=== PATIENT | male | born 1965 | race Caucasian/White ===

== ENCOUNTER 2018-10-01 08:31 | Outpatient (CLI) | payer BC | END 2018-10-01 08:32 | disposition home or self-care (01) | LOC: CTENTCT 08:31 | PROVIDERS: ATTEND Specialist | DX: J32.9 Chronic sinusitis, unspecified (principal) | CPT/HCPCS: 70486 ==

== ENCOUNTER 2019-01-19 11:44 | Emergency (ER) | payer BC ==
[2019-01-19] MEDS ORDERED: Diazepam 5 MG TAB ONE (12:19)
[2019-01-19] MEDS ORDERED: Morphine 10 MG/ML VIAL ONE (12:20)
[2019-01-19] MEDS ORDERED: HYDROcodone/Acetaminophen 5/325 mg Tablet ONE (13:48)
[2019-01-19] MEDS ORDERED: Ketorolac Tromethamine 60 MG/2 ML VIAL ONE (16:19)
== END 2019-01-19 17:28 | disposition home or self-care (01) ==
LOC: ERS 11:44
DX: M54.5 Low back pain (principal); X50.1XXA Overexertion from prolonged static or awkward postures, initial encounter
CPT/HCPCS: 96372; J1885; J2270

== ENCOUNTER 2019-01-20 09:56 | Observation (INO) | payer BC ==
[2019-01-20] MEDS ORDERED: Ondansetron PF 4 MG/2 ML Vial ONE (10:31)
[2019-01-20] MEDS ORDERED: Morphine 4 MG/ML VIAL ONE ×2 (10:31→12:23)
[2019-01-20] MEDS ORDERED: Ketorolac Tromethamine 30 MG/ML VIAL ONE (10:31)
[2019-01-20 10:40] LABS: #Eosinphils 0.1 thou/uL (0.0-0.7); #Lymphocytes 1.5 thou/uL (1.20-3.40); #Monocytes 0.5 thou/uL (0.11-0.59); #Neutrophils 6.3 thou/uL (1.40-6.50); %Basophils 0.5 % (0.0-1.0); %Eosinophils 1.6 % (0.0-10.0); %Lymphocytes 17.5 % (21.0-51.0); %Monocytes 6.1 % (0.0-10.0); %Neutrophils 74.3 % (42.0-75.0); Hemoglobin 14.6 g/dL (14.0-18.0); Mean Corpuscular HGB CONC 33.8 g/dL (32.0-36.0); Mean Corpuscular Hemoglobin 31.1 pg (27.0-31.0); Mean Corpuscular Volume 92.1 fL (78.0-98.0); Mean Platelet Volume 7.6 fL (7.4-10.4); Platelet Count 151 thou/uL (130-400); RBC Distribution Width 12.6 % (11.5-14.5); White Blood Cell (WBC) Count 8.4 thou/uL (4.8-10.8)
[2019-01-20 11:03] LABS: ALT (SGPT) 14 U/L (8-55); AST (SGOT) 15 U/L (5-34); Albumin 3.6 g/dL (3.5-5.0); Alkaline Phosphatase 65 U/L (40-150); Anion Gap 11 mmol/L (10-20); BUN (Urea Nitrogen) 13 mg/dL (8.4-25.7); Bilirubin, Total 0.6 mg/dL (0.2-1.2); CK (CPK) 84 U/L (30-200); Calc. Creatinine Clearance 0 mL/min (70-130); Calcium 8.8 mg/dL (7.8-10.44); Carbon Dioxide 28 mmol/L (22-29); Chloride 104 mmol/L (98-107); Estimated GFR-MDRD 80; Glucose 98 mg/dL (70-105); Potassium 3.8 mmol/L (3.5-5.1); Protein, Total 5.6 g/dL (6.0-8.3); Sodium 139 mmol/L (136-145)
--- NOTE | 2019-01-20 12:13 | CT ---
CT abdomen and pelvis noncontrast CT lumbar spine noncontrast History back pain. Abdomen pain. Flank pain. FINDINGS: Each renal collecting system, ureter, and urinary bladder are decompressed without stone ap parent. Postoperative changes of the stomach. Scattered diverticula arise from the colon without adjacent formation. Vertebral body heights and alignment of the lumbar spine are maintained. Osteophytosis at all levels. Significant bilateral foraminal stenoses at the lowest 2 levels. Left posterolateral disc bulge and ossification at the L4-5 level. Lack of contrast limits evaluation for other abnormalities. Within the lateral margin of the right po sterior liver dome, a subtle, oval 1.1 cm low-density lesion is present. It cannot be confidently characterized as a cyst on this exam. Tiny low-density lesion within the left liver lobe also apparen t. Possible cyst. IMPRESSION: No CT evidence of urinary tract obstruction or calcification. Prominent degenerative changes of lumbar spine, including significant bilateral foraminal stenoses. N o acute osseous abnormalities are demonstrated. Small low-density lesions within the liver, as detailed above. Indeterminate origin. No prior exams a vailable for direct comparison. On a nonemergent basis, please consider dedicated CT liver, without and with IV contrast, for better sedation.
[2019-01-20] MEDS ORDERED: Diazepam 5 MG TAB ONE (12:55)
[2019-01-20] MEDS ORDERED: Zolpidem Tartrate 5 MG TAB PO PRN (13:50)
[2019-01-20] MEDS ORDERED: Ondansetron ODT 4 MG TAB PO PRN (13:50)
[2019-01-20] MEDS ORDERED: Acetaminophen 325 MG TAB PO PRN (13:50)
[2019-01-20] MEDS: HYDROcodone/Acetaminophen 7.5/325 mg Tablet PO PRN (15:47)
[2019-01-20 16:01] VITALS: BMI 39.6
--- NOTE | 2019-01-20 16:13 | HP ---
PRIMARY CARE PHYSICIAN: Xochilt Younger. HISTORY OF PRESENT ILLNESS: Referred to [facility] by [place] [facility] for severe back pain and unable to arise. Back pain started 6 days ago. Then, 2 days later, bending to pharmacy picking tech something, he twisted and he has had severe left-sided flank pain that radiates into the left thigh laterally with motion. He states there is a tingling with the pain. The pain is very sharp and intense. He states it is very difficult to get up and the last time he tried to get up, he had marked dizziness. He has not had no blood or pain on urination. PAST MEDICAL HISTORY: None. MEDICATIONS: None. ALLERGIES: HE GETS ANGIOEDEMA WITH AMOXICILLIN. PAST SURGICAL HISTORY: Gastric bypass 3 years ago, bilateral shoulder arthroscopic surgery, and right knee arthroscopic surgery. FAMILY HISTORY: Father of pancreatic cancer. Mother of lymphoma. He is . , next of kin, has power of employee benefits attorney. Full code status. Does not smoke or drink alcohol. REVIEW OF SYSTEMS: GENERAL: Dizziness, trying to arise today. Otherwise, no headaches, dizziness, fainting, fever, or chills. EYES: No double vision, blurred vision, or flashing lights. EAR, NOSE, AND THROAT: No ear pain or drainage. No nasal bleeding. No trouble swallowing. CARDIAC: No chest pain, orthopnea, or paroxysmal nocturnal dyspnea. RESPIRATIONS: No cough, wheezing, or asthma. GASTROINTESTINAL: No nausea, vomiting, diarrhea, or constipation. No abdominal pain. GENITOURINARY: No hematuria or dysuria. MUSCULOSKELETAL: He wears compression socks for swelling in his ankles. Otherwise, no pain or swelling in his ankle. NEUROLOGIC: No strokes, seizures, or focal weakness. PSYCHIATRIC: No anxiety or depression. SKIN: No bruising, bleeding, or rash. HEME/LYMPH: No tender or swollen lumps under his neck, in his groin or his armpits. PHYSICAL EXAMINATION: GENERAL: He is alert, cooperative, pleasant gentleman, in obvious discomfort. VITAL SIGNS: Blood pressure 151/88, pulse 53, respirations 20, temperature 97.9. HEENT: Examination of his head, eyes, ears, nose, and throat; pupils are equal, round, and reactive to light. Extraocular movements are intact. Sclerae are white. Tympanic membranes clear. Nose clear. Oral mucous membranes are wet. Dental hygiene is good. NECK: Supple without jugular venous distention, adenopathy, thyromegaly, or bruits. CHEST: Clear to auscultation and percussion. HEART: Had a regular rate and rhythm. First and second heart sounds are clear. There are no appreciated murmurs or gallops. ABDOMEN: Soft. Bowel sounds are normal. There is no hepatosplenomegaly. No mass. No rebound. No bruits. EXTREMITIES: Reveal no cyanosis, clubbing, or edema. PULSES: Carotid, radial, femoral, and dorsalis pedis pulses intact and symmetric. SKIN: Warm and dry without bruises or rash. HEME/LYMPH: No tender or swollen lymph nodes in axilla, inguinal, or cervical area. NEUROLOGIC: Cranial nerves 2 through 12 are intact. Moves all extremities. Toes downgoing. Lying supine, straight leg raising at 25 degrees, the patient had sudden pain. As I relaxed his leg, he had a sudden spasm in his leg. LABORATORY DATA: CBC within normal limits. Comprehensive metabolic profile normal. The only study presented radiographically is abdomen CT, noncontrast, was done looking for renal stones, there were none. Noted in the lumbar spine was significant bilateral foraminal stenosis in the lower lumbar spine, left posterolateral disk bulge and ossification to L4-5 level. ASSESSMENT: Severe back pain, left lumbar radiculopathy. PLAN: 1. Analgesia with Wallace and Toradol. 2. Urgent MRI of the LS spine and subsequent neurosurgical consult if indicated. Job ID: [id number]
[2019-01-20] MEDS ORDERED: Cyclobenzaprine 10 MG TAB PO SCH (16:15)
--- NOTE | 2019-01-20 16:48 | MRI ---
LUMBAR SPINE MRI WITHOUT IV COTNRAST: HISTORY: Lumbar radiculopathy. FINDINGS: Conus medullaris region is unremarkable. There are generalized disk desiccation changes and ligament and facet hypertrophic changes throughout the lumbar spine. No significant abnormal marrow signal. Small T2 hyperintense focus in the medial left kidney, evidence for a small cyst. T12-L1 disk: No canal or foraminal stenosis. L1-L2 disk: No canal or lateral recess or foraminal stenosis. L2-L3 disk: Mild disk bulging with slight thinning of the lateral recesses. L3-L4 disk: Generalized disk bulging with a somewhat more focally prominent left central protrusion with an associated annular fissure with mild central canal and mild to moderate lateral recess stenos is without significant foraminal stenosis. L4-L5 disk: Prominent annular fissure in the right paracentral region. Moderate central canal and m oderate to severe bilateral lateral recess stenosis worse on the left side with severe left and moder ate right foraminal stenosis. L5-S1: Generalized disk bulging with moderate to severe left foraminal and moderate right foraminal stenosis with mild bilateral recess stenosis worse on the left side. IMPRESSION: Multilevel variable severity canal, lateral recess, and foraminal stenosis, including L3-L4, L4-L5, a nd L5-S1 in particular. POS: OFF
[2019-01-20] MEDS: Ketorolac Tromethamine 30 MG/ML VIAL IVP PRN (18:17)
[2019-01-20] MEDS: Cyclobenzaprine 10 MG TAB PO SCH (20:53)
[2019-01-21] MEDS: HYDROcodone/Acetaminophen 7.5/325 mg Tablet PO PRN ×3 (00:32→10:02)
[2019-01-21] MEDS: Cyclobenzaprine 10 MG TAB PO SCH ×2 (08:09→14:20)
--- NOTE | 2019-01-21 09:17 | CON ---
DATE OF CONSULTATION: This is an imaging review note. I have not seen this patient in person, but reviewing the imaging. He has what appears to be significant foraminal stenosis to the left more so than to the right at L4 and L5 secondary to bone spurring from the superior articulating facet at L5 and S1. None of these are profound, perhaps moderate at most significant degree, particularly in the L4 foramen on the left. Otherwise, central canal is widely patent with only minimal lateral recess stenosis present at L3-L4 and L4-L5. I would recommend pain management consultation and outpatient followup with Neurosurgery. Job ID: [id number]
[2019-01-21] MEDS: Ketorolac Tromethamine 30 MG/ML VIAL IVP PRN (11:53)
--- NOTE | 2019-01-21 13:52 | PDOC.PN ---
- Subjective Encounter Start Date: 01/21/19 Encounter Start Time: 13:47 Mr. Rodríguez was seen today in follow-up.He says his pain is better controlled. - Objective Resuscitation Status - Order Detail: 01/20/19 13:46 Resuscitation Status Routine Resuscitation Status: FULL: Full Resuscitation MAR Reviewed: Yes Vital Signs & Weight: Vital Signs (12 hours) Temp Pulse Resp BP Pulse Ox 01/21/19 11:23 97.6 F 63 16 154/88 H 98 01/21/19 07:56 97.8 F 61 16 161/92 H 96 01/21/19 04:00 98.2 F 69 18 126/82 96 Weight Weight 309 lb I&O: 01/20/19 01/21/19 01/22/19 06:59 06:59 06:59 Intake Total 480 Balance 480 Result Diagrams: 01/20/19 10:32 01/20/19 10:32 Phys Exam - Physical Examination HEENT: PERRLA, sclera anicteric Respiratory: no wheezing, no rales, no rhonchi, clear to auscultation bilateral Cardiovascular: RRR, no significant murmur, no rub Gastrointestinal: soft, non-tender, no distention, positive bowel sounds Musculoskeletal: no edema, pulses present Dx/Plan (1) Lumbar radiculopathy, acute Code(s): M54.16 - RADICULOPATHY, LUMBAR REGION Status: Acute (2) Obesity, morbid Code(s): E66.01 - MORBID (SEVERE) OBESITY DUE TO EXCESS CALORIES Status: Acute - Plan * Lumbar Radiculopathy- improved * He has been evaluated by pain management, and he will be discharged home on a medrol dose pack .
[2019-01-21] MEDS ORDERED: methylPREDNISolone 4 mg Tablet PO SCH (14:30)
[2019-01-21 15:13] VITALS: BP 150/87; TEMP 97.2
--- NOTE | 2019-01-21 19:06 | CON ---
PAIN MANAGEMENT CONSULTATION DATE OF CONSULTATION: 01/21/2019 HISTORY OF PRESENT ILLNESS: Mr. Rodríguez is a 53-year-old gentleman complaining of low back pain radiating to the left buttock and left posterolateral thigh. Symptoms started approximately 1 week ago when he "felt twinges of pain" associated with reaching for an object over his head. Symptoms resolved. The patient states the following day was "normal", and he was able to exercise without any issues. The following day, the patient has experienced an exacerbation of low back pain radiating to the left buttock and left posterolateral thigh when he bent over to get laundry. The following day, Mr. Rodríguez sought care at [facility]. He states he was treated with a steroid injection, oral Flexeril and ibuprofen and was released. The following day, Mr. Rodríguez saw his chiropractor. He states he was treated with general stretching and range of motion along with TENS treatment. Mr. Rodríguez states his condition continued to worsen. The following day, he sought care at the ER. He was treated with medications and released. Yesterday morning, Mr. Rodríguez was unable to get out of bed due to severe pain. He called for an ambulance and was transported to the ER and subsequently admitted with intractable back pain. Mr. Rodríguez denies any weakness in the lower extremities. No changes in the bowel or bladder function. No saddle anesthesia. His pain increased with range of motion of the lumbar spine with standing and walking. Pain decreases with lying flat. Mr. Rodríguez states his pain has significantly improved since admission. He rates his pain 4 over a scale of 1 to 10 with a single dose of [place] 7.5/325 today. He also has received ketorolac 30 mg IV and Flexeril 10 mg p.o. Mr. Rodríguez states he has been able to tolerate transferring from a lying to sitting position, from a sitting to standing position, and walking around the room this morning. MRI of the lumbar spine showed multilevel disk bulges from L3-L4 through to L5-S1. The L3- L4 disk bulge produces mild central stenosis and knfb-ps-qksuyotv lateral recess stenosis. At L4-L5, he has disk bulging and an annular fissure. There is moderate central canal and uzmkwsdv-dx-ddfodm bilateral recess stenosis, worse on the left where it is severe, and moderate on the right. At L5-S1, there is generalized disk bulging with cpwzbqgd-vw-rtdtfu left foraminal and moderate right foraminal stenosis. There is mild bilateral recess stenosis, worse on the left (MRI findings are per Radiology report). Mr. Rodríguez denies any history of chronic back pain. He states in the past 5 years he has had a single episode of low back pain, that resolved with conservative and resident care technician. PAST MEDICAL HISTORY: The patient denies any chronic illness. MEDICATIONS: None chronically. ALLERGIES: THE PATIENT REPORTS ANGIOEDEMA WITH AMOXICILLIN. PAST SURGICAL HISTORY: 1. Gastric bypass 3 years ago. 2. Arthroscopic bilateral shoulder surgery 5 years ago. 3. Right knee arthroscopic surgery 5 years ago. FAMILY HISTORY: Father of pancreatic cancer. Mother with lymphoma. SOCIAL HISTORY: Mr. Rodríguez is . He denies a history of alcohol or drug abuse. His employment requires frequent travel. REVIEW OF SYSTEMS: Completely negative other than chief complaint. PHYSICAL EXAMINATION: GENERAL: The patient is sitting up in bed, appears comfortable. He is awake and alert. He is oriented. Speech is clear and appropriate. He is non-somnolent. Rates pain 4 over a scale of 1 to 10 presently. HEENT: EOMI. PERRL. Oral mucosa is moist/clear. NECK: Supple. No JVD. C-spine range of motion is intact and asymptomatic. CHEST: Clear to auscultation throughout. Respirations are even and unlabored. HEART: S1 and S2 are present. No murmurs, rubs, or gallops. ABDOMEN: Soft and nontender. Bowel sounds are positive in all 4 quadrants. BACK: He has no midline tenderness in the thoracic or lumbar spine. Mild reproducible tenderness with palpation over the lower lumbar paraspinal musculature. Lumbar flexion and extension are intact. There is mild discomfort with full flexion. Straight leg raises are negative bilaterally. NEUROLOGIC: Strength in the lower extremities is intact and symmetric in all muscle groups. Straight leg raises are negative bilaterally. Reflexes are intact/ symmetric in the lower extremities. ASSESSMENT: Multilevel lumbar disk bulging producing lateral recess and foraminal stenosis; left L5 radiculopathy. PLAN: Mr. Rodríguez states he has improved since hospital admission. Pain is manageable today with a single dose of [place] 7.5/325 along with ketorolac 30 mg IV and Flexeril 10 mg 1 p.o. He will start a Medrol Dosepak and take this as directed. Mr. Rodríguez was able to move around the room without significant pain during his exam today. Mr. Rodríguez will follow up with us on an outpatient basis next week to consider a lumbar epidural steroid injection if the oral steroid taper fails to provide adequate pain relief. Continue [place] and Flexeril as previously prescribed p.r.n. pain/spasm. Job ID: [id number] [facility]
--- NOTE | 2019-01-22 03:58 | DIS ---
DATE OF ADMISSION: 01/20/2019 DATE OF DISCHARGE: 01/21/2019 PRIMARY CARE PHYSICIAN: Xochilt Younger MD DISCHARGE DIAGNOSES: 1. Acute lumbar radiculopathy. 2. Morbid obesity. DISCHARGE MEDICATIONS: Medrol Dosepak as well as [place] 7.5/325 q.4 as needed, and Flexeril 10 mg t.i.d. as needed. PROCEDURES DONE DURING THE ADMISSION: The patient had a CT scan of the abdomen and pelvis, in which there were prominent degenerative changes of the lumbar spine including significant bilateral foraminal stenosis. There were small low density lesions in the liver of indeterminate origin. The patient also had an MRI of the lumbar spine showing multilevel, variable in severity canal stenosis including L3-L4, L4-L5 and L5 and S1. CODE STATUS: Full code. ALLERGIES: TO AMOXICILLIN. HOSPITAL COURSE: Mr. Rodríguez is a pleasant 53-year-old gentleman, who presented to the emergency room with severe low back pain. He had such severe pain that he was barely able to walk. He was placed in observation and an MRI was obtained. It did not show any significant worrisome findings such as an epidural abscess or diskitis or severe disk disease. It was felt that this could be managed conservatively. He was seen by a pain specialist, who recommended a Medrol Dosepak in addition to his current pain medications and to follow up in the outpatient setting if he were to need a spinal injection. Otherwise, the patient was ambulatory and his pain has much improved the following day and was subsequently discharged home. Job ID: [id number]
== END 2019-01-21 15:31 | disposition home or self-care (01) ==
LOC: ERS 09:56 → T4-A 14:51
PROVIDERS: ADMIT Internal Medicine; ATTEND Internal Medicine
DX: M54.16 Radiculopathy, lumbar region (principal); M48.061 Spinal stenosis, lumbar region without neurogenic claudication; R42 Dizziness and giddiness; E66.01 Morbid (severe) obesity due to excess calories; Z68.39 Body mass index [BMI] 39.0-39.9, adult; Z79.899 Other long term (current) drug therapy; Z88.0 Allergy status to penicillin
CPT/HCPCS: 36415; 72148; 74176; 80053; 82550; 85025; 96361; 96374; 96375; 96376; G0378; J1885; J2270; J2405

== ENCOUNTER 2019-03-11 09:46 | Outpatient (CLI) | payer BC ==
--- NOTE | 2019-03-11 11:22 | CT ---
CT ABDOMEN WITH AND WITHOUT IV CONTRAST: HISTORY: right liver lesion COMPARISON: 01/20/2019 FINDINGS: The 1 cm peripheral lesion in the right lobe of the liver is hypodense on the noncontrasted images an d demonstrates no significant/abnormal contrast enhancement. CT measurements are not consistent with a simple cyst. The tiny low-density lesion in the left lobe of the liver is too small to characterize. The lung bases are clear. There are postop changes of gastric bypass surgery. The spleen, pancreas, a drenal glands and kidneys are normal. No calcified gallstones are seen. The small bowel loops are not abnormally dilated. A normal-appearing appendix is seen. There is colonic diverticulosis. Degener ative changes are present in the spine. IMPRESSION: Nonenhancing liver lesions. In the absence of known malignancy, these are statistically likely to re present benign findings.
[2019-03-11] MEDS ORDERED: ISOVUE-370 76%-LOCM 1 ML ONE (11:45)
== END 2019-03-11 09:47 | disposition home or self-care (01) ==
LOC: BICCT 09:46
PROVIDERS: ATTEND Physician Assistant
DX: K76.9 Liver disease, unspecified (principal)
CPT/HCPCS: 74170; Q9966

== ENCOUNTER 2019-08-01 07:47 | Outpatient (CLI) | payer BC ==
[2019-08-01 17:18] LABS: #Eosinphils 0.1 thou/uL (0.0-0.7); #Lymphocytes 1.8 thou/uL (1.20-3.40); #Monocytes 0.5 thou/uL (0.11-0.59); %Basophils 0.6 % (0.0-1.0); %Eosinophils 2.2 % (0.0-10.0); %Lymphocytes 27.9 % (21.0-51.0); %Monocytes 7.3 % (0.0-10.0); %Neutrophils 62.1 % (42.0-75.0); Hemoglobin 14.8 g/dL (14.0-18.0); Mean Corpuscular HGB CONC 34.3 g/dL (32.0-36.0); Mean Corpuscular Hemoglobin 30.9 pg (27.0-31.0); Mean Corpuscular Volume 89.9 fL (78.0-98.0); Mean Platelet Volume 7.9 fL (7.4-10.4); Platelet Count 148 thou/uL (130-400); RBC Distribution Width 12.1 % (11.5-14.5); Red Blood Cell (RBC) Count 4.79 mill/uL (4.70-6.10); White Blood Cell (WBC) Count 6.4 thou/uL (4.8-10.8)
[2019-08-01 17:44] LABS: Anion Gap 12 mmol/L (10-20); BUN (Urea Nitrogen) 12 mg/dL (8.4-25.7); Calc. Creatinine Clearance 0 mL/min (70-130); Calcium 9.2 mg/dL (7.8-10.44); Carbon Dioxide 27 mmol/L (22-29); Chloride 106 mmol/L (98-107); Estimated GFR-MDRD 86; Glucose 96 mg/dL (70-105); Sodium 141 mmol/L (136-145)
== END 2019-08-01 07:48 | disposition home or self-care (01) ==
LOC: LABBT 07:47
PROVIDERS: ATTEND Orthopaedic Surgery
DX: Z01.812 Encounter for preprocedural laboratory examination (principal); M23.41 Loose body in knee, right knee
CPT/HCPCS: 80048; 85025

== ENCOUNTER 2019-08-05 05:43 | Day surgery (SDC) | payer BC ==
[2019-08-01 15:32] VITALS: BMI 37.8
[2019-08-05] MEDS ORDERED: PROPOFOL 20 ML ONE (06:15)
[2019-08-05] MEDS ORDERED: Clindamycin/D5W 600 mg/50 ml Premix Bag ONE (07:00)
[2019-08-05] MEDS ORDERED: Fentanyl 100 MCG/2 ML VIAL ONE (07:18)
[2019-08-05] MEDS ORDERED: Ondansetron PF 4 MG/2 ML Vial ONE ×2 (08:42→11:02)
[2019-08-05] MEDS ORDERED: PROPOFOL 200 MG/20 ML VIAL ONE (11:02)
[2019-08-05] MEDS ORDERED: Ketorolac Tromethamine 30 MG/ML VIAL ONE (11:02)
[2019-08-05] MEDS ORDERED: Lidocaine 1% PF 5 ML VIAL ONE (11:02)
[2019-08-05] MEDS ORDERED: Lidocaine 2% w/Epinephrine 1:200K 20 ML VIAL ONE (11:02)
[2019-08-05] MEDS ORDERED: ePHEDrine/0.9% NaCl/PF SYRINGE 50 mg/10 ml ONE (11:02)
[2019-08-05] MEDS ORDERED: Bupivacaine HCl 0.5%/Epinephrine 1:200,000/PF 30 ml Vial ONE (11:02)
--- NOTE | 2019-08-08 09:15 | OP ---
DATE OF PROCEDURE: 08/05/2019 PREOPERATIVE DIAGNOSES: Loose body and possible meniscus tear, right knee. 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 ANESTHESIA: General. ESTIMATED BLOOD LOSS: Minimal. SPECIMENS: None. DRAINS: None. COMPLICATIONS: None. DESCRIPTION OF PROCEDURE: The patient was taken to the operating room, where general anesthesia was induced. Right leg was prepped and draped in usual sterile fashion. The scope was placed in the lateral portal, probe was placed in the medial portal. I removed a large loose body from the medial compartment of his knee. This was done with some difficulty. I had to use some periosteal elevators to extract the flap-type connection. Once this was done, I removed four loose bodies from his knee from partial lateral meniscectomy with a shaver. The medial meniscus was not actually torn, but there were stable articular cartilage flap tears, which could be interpreted as a meniscus tear on the MRI, debrided using a 4-0 full-radius resector. The knee was then drained. The medial portal was closed with nylon and sterile dressings applied. Job ID: [id number]
== END 2019-08-05 10:46 | disposition home or self-care (01) ==
LOC: SDC 05:43
PROVIDERS: ATTEND Orthopaedic Surgery
PROC: 0SBC4ZZ Excision of Right Knee Joint, Percutaneous Endoscopic Approach (ICD-10-PCS; principal; 2019-08-05)
DX: S83.281A Other tear of lateral meniscus, current injury, right knee, initial encounter (principal); S83.31XA Tear of articular cartilage of right knee, current, initial encounter; M94.261 Chondromalacia, right knee; M17.31 Unilateral post-traumatic osteoarthritis, right knee; I10 Essential (primary) hypertension; G47.30 Sleep apnea, unspecified; J45.909 Unspecified asthma, uncomplicated; Z79.899 Other long term (current) drug therapy; Z88.0 Allergy status to penicillin; Z98.84 Bariatric surgery status; X58.XXXA Exposure to other specified factors, initial encounter
CPT/HCPCS: J0670; J1885; J2001; J2405; J2704; J3010; J3490

== ENCOUNTER 2019-12-09 20:09 | Emergency (ER) | payer BC ==
[2019-12-09] MEDS ORDERED: Diazepam 5 MG TAB ONE (20:35)
[2019-12-09] MEDS ORDERED: Dexamethasone 10 MG/ML VIAL ONE (20:35)
[2019-12-09] MEDS ORDERED: Fentanyl 100 MCG/2 ML VIAL ONE (20:35)
[2019-12-09] MEDS ORDERED: Morphine 4 MG/ML VIAL ONE (22:07)
[2019-12-09] MEDS ORDERED: Ketorolac Tromethamine 30 MG/ML VIAL ONE (22:33)
--- NOTE | 2019-12-09 23:22 | CT ---
Exam: Lumbar spine CT without contrast HISTORY: Lumbar spine pain COMPARISON: None Correlation: MRI lumbar spine 01/20/2019 FINDINGS: Visualized solid organs are grossly unremarkable, with the exception of the pancreas/peripa ncreatic region with there are multiple hypodensities present. There is a well-circumscribed hypodense mass posterior to the head of the pancreas, near the uncinate prothesis measuring 3.6 x 3.0 cm with attenuation coefficient of 46 Hounsfield units. This hypodense lesion is not appreciated on a CT of the abdomen and pelvis performed in 03/11/2019. Better interrogation with a abdomen CT with oral and IV contrast is recommended. There are enlarged left periaortic lymph nodes. Lymph node conglomeration measures 4.8 x 2.8 cm. Additional lymph nodes are noted. There are 5 lumbar type vertebra. Lumbar spine vertebral body height is maintained. There is no fract ure. Presacral fat is preserved. Visualized sacrum and bony pelvis are intact. There is no spondylolisthesis. No spondylolysis. Limited evaluation the contents of the central spinal canal and neural foramina due to technique. T12-L1: No high-grade central canal stenosis. No high-grade neural foraminal narrowing L1-L2: No high-grade central canal stenosis or high-grade neural foraminal narrowing L1-2-L3: Broad-based disc bulge. Mild central canal stenosis. Mild bilateral neural foraminal narrowi ng L3-L4: Broad-based disc bulge with calcification in posterior annulus. Mild central canal stenosis an d mild bilateral foraminal narrowing L4-L5: There is a broad-based disc bulge with associated endplate osteophytes. There is narrowing of both subarticular zones. There is mass effect and probable obscuration of bilateral traversing L5 nerve roots. Moderate right and moderate to severe left neural foraminal narrowing L5-S1: Vacuum disc phenomenon. Broad-based disc bulge abuts the thecal sac. There is encroachment upo n both subarticular zones, left greater than right. Mass effect upon bilateral traversing S1 nerve roots, left greater than right. Moderate right and severe left neural foraminal narrowing. IMPRESSION: 1. Degenerative changes of the lumbar spine as described above. 2. Extensive retroperitoneal lymphadenopathy, incompletely evaluated. Questionable mass near the head of the pancreas. Further interrogation with an abdomen pelvis CT utilizing oral and IV contrast is recommended.
== END 2019-12-10 00:45 | disposition home or self-care (01) ==
LOC: ERS 20:09
DX: M47.816 Spondylosis without myelopathy or radiculopathy, lumbar region (principal)
CPT/HCPCS: 72131; 96374; 96375; J1100; J1885; J2270; J3010

== ENCOUNTER 2019-12-15 07:48 | Emergency (ER) | payer BC ==
[2019-12-15] MEDS ORDERED: Morphine 4 MG/ML VIAL ONE (08:12)
[2019-12-15] MEDS ORDERED: Ketorolac Tromethamine 30 MG/ML VIAL ONE (08:13)
[2019-12-15] MEDS ORDERED: Morphine 2 MG/ML SYRINGE ONE (08:13)
[2019-12-15] MEDS ORDERED: traMADol HCl 50 MG TAB ONE (11:04)
[2019-12-15] MEDS ORDERED: Gabapentin 300 MG CAP PO SCH (11:15)
== END 2019-12-15 11:45 | disposition home or self-care (01) ==
LOC: ERS 07:48
DX: M54.5 Low back pain (principal); M25.572 Pain in left ankle and joints of left foot; Z79.899 Other long term (current) drug therapy; Z79.82 Long term (current) use of aspirin
CPT/HCPCS: 96372; 99283; J1885; J2270

== ENCOUNTER 2019-12-17 19:58 | Emergency (ER) | payer BC ==
[2019-12-17] MEDS ORDERED: Fentanyl 100 MCG/2 ML VIAL ONE ×2 (20:57→22:12)
[2019-12-17] MEDS ORDERED: Lorazepam 2 MG/ML VIAL ONE (20:57)
[2019-12-17] MEDS ORDERED: Ketorolac Tromethamine 30 MG/ML VIAL ONE (20:57)
[2019-12-17] MEDS ORDERED: Dexamethasone 4 mg/ml Vial ONE (20:57)
== END 2019-12-17 23:03 | disposition home or self-care (01) ==
LOC: ERS 19:58
DX: M54.6 Pain in thoracic spine (principal); G89.29 Other chronic pain; I10 Essential (primary) hypertension; Z79.82 Long term (current) use of aspirin; Z79.899 Other long term (current) drug therapy
CPT/HCPCS: 96374; 96375; 96376; J1100; J1885; J2060; J3010

== ENCOUNTER 2019-12-21 14:15 | Outpatient (CLI) | payer BC ==
[~2019-12-21 14:15] MED LIST: Magnevist 469MG/ML 20 ML VIAL ONE
--- NOTE | 2019-12-21 16:26 | MRI ---
MRI OF THE LUMBAR SPINE WITH AND WITHOUT CONTRAST: 12/21/19 INDICATIONS: Lumbar radiculopathy. Fall with severe back pain. Comparison made to recent CT lumbar spine 12/09/19. That exam revealed multilevel degenerative change. Also described retroperitoneal adenopathy which was new when compared to previous MRI lumbar spine f rom 01/20/19. Correlation is made to the MRI of 01/20/19. FINDINGS: the lumbar vertebrae maintain height and alignment. There is edema within the L4 vertebra which is mo re pronounced posteriorly. This also shows diffuse enhancement. There is also mild edema enhancement in the posterior superior portion of the L5 vertebra. The other lumbar vertebrae maintain normal sign al. There is no compression or loss of height. At L1-2, no significant disc bulge or protrusion. Facet hypertrophy without central canal or foramina l stenosis. At L2-3, mild diffuse disc bulge. Moderate facet hypertrophy. Mild central canal stenosis. At L3-4, mild disc bulge slightly more pronounced to the left. Probable small annular fissure. This f lattens the anterior thecal sac more pronounced anteriorly on the left and results in mild central ca nal stenosis. There is associated facet hypertrophy and epidural fat. At L4-5, slight posterior listhesis along with a diffuse disc bulge. Facet hypertrophy. Mild to moder ate central canal stenosis. Left foraminal stenosis due to disc bulge into the foramina and the facet hypertrophy. At L5-S1, broad based disc bulge has a similar appearance to the prior study of 2019. This flattens t he anterior thecal sac and is slightly more pronounced to the left. Mild central canal stenosis. Left foraminal stenosis The retroperitoneal periaortic adenopathy seen on CT is again noted. IMPRESSION: 1. There is abnormal edema and enhancement involving the L4 and L5 vertebrae as described above. This could represent injury given the history of recent fall. There is no loss of height at this janeen e. Other pathologic etiologies cannot be excluded considering the presence of the adenopathy. Follow -up plain films could be performed to assess development of height loss. 2. Disc bulge/protrusion at several levels, most prominent at L3-4, L4-5 and L5-S1 as described above. 3. Retroperitoneal adenopathy is again noted. POS: ROMÁN
--- NOTE | 2019-12-21 16:59 | CT ---
CT ABDOMEN WITH CONTRAST: 12/21/19 INDICATIONS: Lymphadenopathy noted on recent CT lumbar spine. COMPARISON: Comparison made to CT abdomen and pelvis 03/11/19. The exam was performed with IV contrast; however, there is suboptimal opacification. There is a small 22 gauge needle with small flow rate which results in poor venous phase enhancement. The portal vein s and hepatic veins are not adequately opacified. Oral contrast was given. FINDINGS: The lung bases are clear. Images of the liver again reveal a small cyst peripherally in the right lobe which was present previo usly and is stable measuring approximately 1.0 cm. However, there are other liver lesions which appea r new today. There is a faint low density focus in the upper right lobe measuring 2.1 cm AP dimension which is poorly seen and poorly evaluated due to the lack of adequate contrast enhancement. There is another low density lesion under the dome of the liver measuring 1.6 cm which appears new from prior exam. The spleen and pancreas are unremarkable. The stomach again shows postoperative change. There is mural thickening and luminal narrowing at the EG junction and cardia region of the stomach. This may be postoperative; however, endoscopy is recomm ended to assess the mucosa at this location. The visualized small bowel loops are normal caliber; how ever, the entire small bowel are not evaluated on this abdomen only exam. Aorta is normal caliber. Adrenal glands and kidneys unremarkable. There is an exophytic cyst from the superior left kidney salvatore suring 1.6 cm which was present previously and is stable. There is significant abdominal adenopathy seen today. There are enlarged lymph nodes seen in the port a hepatis and portacaval regions. Enlarged portacaval lymph node today measures up to 5 cm. These lym ph nodes are seen around the head of the pancreas and abutting the duodenal loop. There is adenopathy seen in the upper abdomen superior to the adrenal glands and adenopathy along the inferior margin of the pancreas. There is significant periaortic adenopathy. Confluent adenopathy to the left of the aorta is seen and there is prominent aortocaval adenopathy as well. When compared to the prior exam of 03/11/19, there was a portacaval node which was mildly prominent an d there was a periaortic node on the right which was upper normal at that time measuring in the 1.6 c m range. There has been significant progression of the adenopathy since that study. Osseous structures unremarkable. IMPRESSION: 1. Significant adenopathy. There is estefania hepatis and portacaval adenopathy with significant edie nopathy in the periaortic and paracaval region. This has progressed significantly since the prior exa m of 03/11/19. 2. Evidence of two new liver lesions. The liver is poorly evaluated due to poor IV enhancement. 3. Mucosal thickening and luminal narrowing at the EG junction and extending into the cardia of the stomach at the site of prior operative change. Consider endoscopy. 4. Small cystic lesion exophytic from the superior left kidney is stable. POS: AGW
== END 2019-12-21 14:16 | disposition home or self-care (01) ==
LOC: TBSIIMAG 14:15
PROVIDERS: ATTEND Neurological Surgery
DX: R59.1 Generalized enlarged lymph nodes (principal); K75.89 Other specified inflammatory liver diseases; K76.9 Liver disease, unspecified; K92.89 Other specified diseases of the digestive system; N28.89 Other specified disorders of kidney and ureter; M51.16 Intervertebral disc disorders with radiculopathy, lumbar region
CPT/HCPCS: 72158; 74160; 74170; A9579

== ENCOUNTER → 2020-01-03 | Day surgery (SDC) | payer BC ==
[2020-01-03 07:01] VITALS: BMI 41.7
[2020-01-03 08:41] LABS: #Basophils 0.1 thou/uL (0.0-0.2); #Eosinphils 0.1 thou/uL (0.0-0.7); #Monocytes 0.6 thou/uL (0.11-0.59); %Basophils 0.7 % (0.0-1.0); %Eosinophils 1.2 % (0.0-10.0); %Lymphocytes 22.6 % (21.0-51.0); %Monocytes 6.9 % (0.0-10.0); %Neutrophils 68.7 % (42.0-75.0); Hemoglobin 14.3 g/dL (14.0-18.0); Mean Corpuscular HGB CONC 32.6 g/dL (32.0-36.0); Mean Corpuscular Volume 92.2 fL (78.0-98.0); Platelet Count 191 thou/uL (130-400); RBC Distribution Width 12.6 % (11.5-14.5); Red Blood Cell (RBC) Count 4.77 mill/uL (4.70-6.10); White Blood Cell (WBC) Count 8.8 thou/uL (4.8-10.8)
[2020-01-03 08:48] LABS: INR-International Normal Ratio 0.9; PTT 28.7 SEC (22.9-36.1); Prothrombin Time 12.4 sec (12.0-14.7)
--- NOTE | 2020-01-03 11:49 | CT ---
CT-guided biopsy left retroperitoneal mass Conscious sedation: At least 40 minutes spent with the patient for conscious sedation. HISTORY: Retroperitoneal mass. FINDINGS: After explaining the procedure and answering all questions, limited CT imaging of the abdom en was performed with patient right lateral decubitus position. Sterile technique, buffered local anesthesia, CT guidance, conscious sedation, and a left posterior a pproach were used to carefully advance a 19-gauge trocar needle into the left retroperitoneum, approaching the para-aortic mass. Multiple 20-gauge core biopsy specimens were obtained and submitted to Dr. Morel from pathology, who confirmed specimen adequacy. Needle was removed. No evidence of complication. Patient tolerated the procedure well and was returned to the holding area in good condition for furth er monitoring. IMPRESSION : Technically successful CT-guided biopsy left retroperitoneal mass. Pathology is pending.
[2020-01-03 13:13] VITALS: BP 145/95; TEMP 98.4
== END ==
LOC: CT 08:28
PROVIDERS: ATTEND Specialist
PROC: BW2GZZZ Computerized Tomography (CT Scan) of Pelvic Region (ICD-10-PCS; principal; 2020-01-03)
PROC: 07BC3ZX Excision of Pelvis Lymphatic, Percutaneous Approach, Diagnostic (ICD-10-PCS; principal; 2020-01-03)
DX: R59.0 Localized enlarged lymph nodes (principal); I10 Essential (primary) hypertension; J45.909 Unspecified asthma, uncomplicated; G47.30 Sleep apnea, unspecified; Z79.899 Other long term (current) drug therapy; Z88.0 Allergy status to penicillin
CPT/HCPCS: 36415; 49180; 77012; 85025; 85610; 85730; 88184; 88305; 88333; 88334

== ENCOUNTER 2020-02-13 09:41 | Outpatient (CLI) | payer BC ==
--- NOTE | 2020-02-13 10:00 | RAD ---
LUMBAR SPINE SERIES 2 VIEWS: Date: 02/04/2020 HISTORY: Back pain. Fall 2 months ago. COMPARISON: 01/12/2020 exam. FINDINGS: The vertebral bodies maintain normal height. Some degenerative osteophytic change is seen. Some minim al disc narrowing at L3-4 and L4-5. More pronounced disc narrowing at the L5-S1 level. Overall change s appear fairly similar to the previous exam. IMPRESSION: Stable exam. POS: CLARISSA
== END 2020-02-13 09:42 | disposition home or self-care (01) ==
LOC: TBSIIMAG 09:41
PROVIDERS: ATTEND Neurological Surgery
DX: M54.16 Radiculopathy, lumbar region (principal)
CPT/HCPCS: 72100

== ENCOUNTER 2020-02-27 13:32 | Outpatient (CLI) | payer BC ==
[~2020-02-27 13:32] MED LIST changes: +Iopamidol-370 76% 500 ML 1 ML ONE; -Magnevist 469MG/ML 20 ML VIAL ONE
--- NOTE | 2020-02-27 15:45 | CT ---
CT THORAX WITH CONTRAST: DATE: 02/27/2020 HISTORY: 55-year-old male with neuroendocrine tumor. Staging CT. COMPARISON: no prior chest CT FINDINGS: At the lower portions of the images, there is a left para-aortic retroperitoneal mass that was recent ly biopsied under CT guidance. Again noted are the small lesions at the dome of the right lobe of the liver previously mentioned on the 12/21/[address] report. Suture line along narrowed stomach. No destructive osseous lesion identified. There are no suspicious pulmonary nodules. The lungs are clear. No pleural effusion or pneumothorax. No hilar lymphadenopathy. No thoracic aortic aneurysm . There is an approximately 1.6 x 1.4 x 1.8 cm enlarged prevascular space mediastinal lymph node just l ateral to the AP window and adjacent to the bottom of the aortic arch. Located a distance of approximately 2.5 cm anterior to that, there is another lymph node measuring ap proximately 1.4 x 1 x 1.1 cm. There are no other significantly enlarged mediastinal lymph nodes. No cardiomegaly or pericardial effusion. IMPRESSION: 1) 2 mildly enlarged mediastinal lymph nodes in the prevascular space adjacent to the aortic arch. Th iza are not amenable to percutaneous biopsy. Recommend PET scan. 2) no pulmonary metastases.
== END 2020-02-27 13:33 | disposition home or self-care (01) ==
LOC: BICCT 13:32
PROVIDERS: ATTEND Internal Medicine Hematology & Oncology
DX: D3A.8 Other benign neuroendocrine tumors (principal); C25.7 Malignant neoplasm of other parts of pancreas; R59.0 Localized enlarged lymph nodes
CPT/HCPCS: 71260; 83497; Q9967

== ENCOUNTER 2020-03-20 12:47 | Outpatient (CLI) | payer BC ==
--- NOTE | 2020-03-21 15:22 | NM ---
Radionucleotide Octreoscan with SPECT imaging HISTORY: Neuroendocrine tumor of the pancreas. FINDINGS: Physiologic uptake is apparent within the abdominal viscera and urinary system. No focal areas of abnormal uptake are evident at the abdomen/retroperitoneum with the mediastinum in region of adenopathy. IMPRESSION : Thoracoabdominal neoplasm does not accumulate Octreoscan.
== END 2020-03-20 12:48 | disposition home or self-care (01) ==
LOC: NM 12:47
PROVIDERS: ATTEND Internal Medicine Hematology & Oncology
DX: C25.7 Malignant neoplasm of other parts of pancreas (principal); D49.89 Neoplasm of unspecified behavior of other specified sites
CPT/HCPCS: 78802; 78803; A4641; A9572

== ENCOUNTER 2020-06-06 14:59 | Outpatient (CLI) | payer BC ==
--- NOTE | 2020-06-06 15:49 | RAD ---
EXAM: XR Lumbar Spine 2 Or 3 View PROVIDED CLINICAL HISTORY: Lumbar radiculopathy. Back pain since fall in November 2019. COMPARISON: 02/13/2020 FINDINGS: Again noted is loss of intervertebral disc space height at the L4-5 and L5-S1 levels. The vertebral b marsha heights are within normal limits. No fracture or subluxation is seen on the provided lateral images. Osseous detail is limited due to overlying soft tissue density. IMPRESSION: Osseous detail is limited due to overlying soft tissue density; however, there are degenerative justin es again seen in the lower lumbar spine without definite acute osseous abnormality seen on provided lateral images. There is no subluxation.
== END 2020-06-06 15:00 | disposition home or self-care (01) ==
LOC: TBSIIMAG 14:59
PROVIDERS: ATTEND Neurological Surgery
DX: M47.26 Other spondylosis with radiculopathy, lumbar region (principal)
CPT/HCPCS: 72100

== ENCOUNTER 2020-06-07 10:47 | Observation (INO) | payer BC ==
[2020-06-07] MEDS ORDERED: EPINEPHrine 1 mg/ml MDV (1ml Charge) ONE (12:18)
[2020-06-07] MEDS ORDERED: methylPREDNISolone Sod Succ/PF 125 MG/2 ML VIAL ONE (12:19)
[2020-06-07] MEDS ORDERED: diphenhydrAMINE 50 MG/ML VIAL ONE (12:19)
[2020-06-07] MEDS ORDERED: Famotidine/PF 20 mg/2ml Vial ONE (12:20)
[2020-06-07 14:00] LABS: #Lymphocytes 1.1 thou/uL (1.20-3.40); #Monocytes 0.3 thou/uL (0.11-0.59); #Neutrophils 2.8 thou/uL (1.40-6.50); %Basophils 0.9 % (0.0-1.0); %Eosinophils 0.9 % (0.0-10.0); %Lymphocytes 24.7 % (21.0-51.0); %Monocytes 7.3 % (0.0-10.0); %Neutrophils 66.3 % (42.0-75.0); Hemoglobin 14.5 g/dL (14.0-18.0); Mean Corpuscular HGB CONC 33.8 g/dL (32.0-36.0); Mean Corpuscular Hemoglobin 30.3 pg (27.0-31.0); Mean Corpuscular Volume 89.6 fL (78.0-98.0); Mean Platelet Volume 7.7 fL (7.4-10.4); Platelet Count 189 thou/uL (130-400); RBC Distribution Width 15.7 % (11.5-14.5); Red Blood Cell (RBC) Count 4.79 mill/uL (4.70-6.10); White Blood Cell (WBC) Count 4.2 thou/uL (4.8-10.8)
[2020-06-07] MEDS ORDERED: Ondansetron PF 4 MG/2 ML Vial IVP PRN (14:00)
[2020-06-07] MEDS ORDERED: Acetaminophen 325 MG TAB PO PRN ×2 (14:00→16:33)
[2020-06-07] MEDS ORDERED: Ondansetron ODT 4 MG TAB SL PRN (14:00)
[2020-06-07] MEDS ORDERED: Tranexamic Acid 1,000 MG/10 ML VIAL ONE (14:06)
[2020-06-07 14:07] LABS: INR-International Normal Ratio 0.9; PTT 32.9 sec (22.9-36.1); Prothrombin Time 12.4 sec (12.0-14.7)
[2020-06-07 14:31] LABS: Anion Gap 13 mmol/L (10-20); BUN (Urea Nitrogen) 9 mg/dL (8.4-25.7); Carbon Dioxide 28 mmol/L (22-29); Chloride 104 mmol/L (98-107); Potassium 4.6 mmol/L (3.5-5.1); Sodium 140 mmol/L (136-145)
[2020-06-07 14:32] LABS: ALT (SGPT) 15 U/L (8-55); AST (SGOT) 22 U/L (5-34); Albumin 4.1 g/dL (3.5-5.0); Alkaline Phosphatase 131 U/L (40-110); Bilirubin, Total 0.4 mg/dL (0.2-1.2); Calc. Creatinine Clearance 0 mL/min (70-130); Calcium 9.2 mg/dL (7.8-10.44); Estimated GFR-MDRD 70; Globulin 3.4 g/dL (2.4-3.5); Glucose 97 mg/dL (70-105); Protein, Total 7.5 g/dL (6.0-8.3)
[2020-06-07] MEDS ORDERED: Sodium Chloride 0.65% Nasal 44 ML BOT EA NARE PRN (16:33)
[2020-06-07] MEDS ORDERED: Senokot S 8.6-50 MG TAB PO PRN (16:33)
[2020-06-07] MEDS ORDERED: Labetalol HCl 100 MG/20 ML VIAL SLOW IVP PRN (16:33)
[2020-06-07] MEDS ORDERED: Zolpidem Tartrate 5 MG TAB PO PRN (16:33)
[2020-06-07] MEDS ORDERED: Guaifenesin DM 100-10/5 ML UDCUP PO PRN (16:33)
[2020-06-07] MEDS ORDERED: Bisacodyl 10 MG SUPP PR PRN (16:33)
[2020-06-07] MEDS ORDERED: Calcium Carbonate 500 MG ChewTAB PO PRN (16:33)
[2020-06-07] MEDS ORDERED: Cepastat Lozenges 1 LOZ PO PRN (16:33)
[2020-06-07] MEDS ORDERED: Loperamide HCl 2 MG CAP PO PRN (16:33)
[2020-06-07] MEDS ORDERED: hydrALAZINE 20 MG/ML VIAL SLOW IVP PRN (16:33)
[2020-06-07] MEDS ORDERED: Ondansetron ODT 4 MG TAB PO PRN (16:33)
[2020-06-07 18:36] VITALS: BMI 43.9
--- NOTE | 2020-06-07 19:59 | HP ---
PRIMARY CARE PHYSICIAN: [facility]. REASON FOR ADMISSION: Angioedema. HISTORY OF PRESENT ILLNESS: A 55-year-old male who has a history of hypertension and he is taking lisinopril for a long period of time. He was recently started on new blood pressure medication, but he is not able to tell me the name of medication. The patient also reports that he had back abscess, which required incision and debridement recently, and subsequently, the patient was given Bactrim DS and clindamycin. The patient was taking this antibiotic for about one week. The patient today noticed swelling of tongue and swelling of lip and he was having difficulty speaking because of that. The patient was given treatment for angioedema, but he did not improve significantly and that is why we decided to keep this patient in the hospital for observation. REVIEW OF SYSTEMS: All review of systems reviewed and negative except as mentioned in HPI. PAST MEDICAL HISTORY: Hypertension, morbid obesity, neuroendocrine tumor. PAST SURGICAL HISTORY: Gastric sleeve surgery, right knee surgery, right shoulder surgery. PAST PSYCHIATRIC HISTORY: Reviewed and negative. SOCIAL HISTORY: No smoking. No alcohol. No illicit drug abuse. ALLERGIES: AMOXICILLIN AND GABAPENTIN. CURRENT HOME MEDICATIONS: 1. Lisinopril 20 mg daily. 2. Flexeril 10 mg q.8 hourly p.r.n. 3. Tramadol 50 mg q.8 hourly p.r.n. 4. Clindamycin 150 mg four times daily. EMERGENCY ROOM COURSE: The patient was given Cyklokapron IV, epinephrine, Pepcid 20 mg, Solu-Medrol 125 mg, and Benadryl 50 mg. PHYSICAL EXAMINATION: VITAL SIGNS: On arrival, blood pressure 165/90, pulse 76, respiratory rate 16, temperature 98.0, saturation 100% on room air. Weight 155 kg. GENERAL: The patient is currently alert, awake, no acute distress. HEENT: Head is normocephalic, atraumatic. NECK: Supple. No JVD. No meningeal signs of irritation. LUNGS: Clear to auscultation without any rhonchi or rales. CARDIAC: S1 and S2 regular, no murmur. No gallop. No rub. ABDOMEN: Soft, bowel sounds present, nontender, nondistended. No organomegaly. No mass. EXTREMITIES: No edema. Good distal pulsation. SKIN: No skin rash. HEMATOLOGICAL SYSTEM: No lymphadenopathy. NEUROLOGIC: Nonfocal examination. SIGNIFICANT LABORATORY DATA: CBC: WBC 4.2, hemoglobin 14.5, platelet 189. INR was 0.9. BMP: Sodium 140, potassium 4.6, chloride 104, carbon dioxide 28, BUN 9, creatinine 1.1, glucose 97, calcium 9.2. LFT: AST 22, ALT 15, alkaline phosphatase 131, albumin 4.1. ASSESSMENT: 1. Angioedema, likely due to lisinopril. 2. Hypertension. 3. Morbid obesity with BMI of 44. 4. Recent back abscess, status post incision and drainage. PLAN: 1. We will treat with the Solu-Medrol 40 mg IV q.8 hourly. 2. Pepcid 20 mg p.o. b.i.d. 3. Benadryl 25 mg IV q.4 hours hourly p.r.n. 4. We will alternatively start Procardia XL 60 mg p.o. daily. 5. The patient is advised to avoid CONRADO inhibitor in future. 6. DVT prophylaxis, Lovenox 40 mg subcu daily. 7. GI prophylaxis, Pepcid 20 mg p.o. b.i.d. 8. Code status: The patient is full code. DISPOSITION PLAN: Likely within 24 hours. Plan of care discussed with the patient in detail. Job ID: [id number]
[2020-06-07] MEDS ORDERED: Gabapentin 100 MG CAP PO SCH (21:00)
[2020-06-07] MEDS: diphenhydrAMINE 50 MG/ML VIAL IVP PRN (21:22)
[2020-06-07] MEDS: Famotidine 20 MG TAB PO SCH (21:23)
[2020-06-07] MEDS: methylPREDNISolone Sod Succ 40 MG VIAL IVP SCH (21:23)
[2020-06-07] MEDS ORDERED: ALPRAZolam 0.25 MG TAB PO SCH (23:00)
[2020-06-08] MEDS: diphenhydrAMINE 50 MG/ML VIAL IVP PRN ×2 (03:21→12:00)
[2020-06-08 05:36] LABS: #Lymphocytes 0.7 thou/uL (1.20-3.40); #Monocytes 0.4 thou/uL (0.11-0.59); #Neutrophils 6.1 thou/uL (1.40-6.50); %Basophils 0.4 % (0.0-1.0); %Eosinophils 0.1 % (0.0-10.0); %Lymphocytes 9.7 % (21.0-51.0); %Monocytes 5.5 % (0.0-10.0); %Neutrophils 84.4 % (42.0-75.0); Mean Corpuscular HGB CONC 33.1 g/dL (32.0-36.0); Mean Corpuscular Hemoglobin 30.2 pg (27.0-31.0); Mean Corpuscular Volume 91.2 fL (78.0-98.0); Mean Platelet Volume 7.2 fL (7.4-10.4); Platelet Count 183 thou/uL (130-400); RBC Distribution Width 15.5 % (11.5-14.5); Red Blood Cell (RBC) Count 4.63 mill/uL (4.70-6.10); White Blood Cell (WBC) Count 7.2 thou/uL (4.8-10.8)
[2020-06-08] MEDS: methylPREDNISolone Sod Succ 40 MG VIAL IVP SCH ×2 (05:45→13:04)
[2020-06-08 05:55] LABS: Anion Gap 13 mmol/L (10-20); BUN (Urea Nitrogen) 12 mg/dL (8.4-25.7); Calc. Creatinine Clearance 176 mL/min (70-130); Calcium 9.2 mg/dL (7.8-10.44); Carbon Dioxide 26 mmol/L (22-29); Chloride 104 mmol/L (98-107); Estimated GFR-MDRD 74; Glucose 124 mg/dL (70-105); Potassium 5.5 mmol/L (3.5-5.1); Sodium 137 mmol/L (136-145)
[2020-06-08] MEDS ORDERED: NIFEdipine XL 60 MG TAB PO SCH (09:00)
[2020-06-08] MEDS: Famotidine 20 MG TAB PO SCH ×2 (09:09→22:08)
[2020-06-08] MEDS: Enoxaparin Sodium 40 MG/0.4 ML SYRINGE SC SCH (09:10)
--- NOTE | 2020-06-08 12:35 | DIS ---
DATE OF ADMISSION: 06/07/2020 DATE OF DISCHARGE: 06/08/2020 PRIMARY CARE PHYSICIAN: Dr. Luis Herrera. DISCHARGE DISPOSITION: Home. PRIMARY DISCHARGE DIAGNOSIS: Angioedema due to lisinopril, improved. SECONDARY DISCHARGE DIAGNOSES: 1. Morbid obesity with BMI of 43. Recent history of back abscess, on antibiotic therapy. 2. Chronic low back pain. 3. Hypertension. 4. Vitamin D deficiency. PRIMARY PROCEDURES/OPERATION: None. RADIOLOGICAL INVESTIGATION: None. SIGNIFICANT LABORATORY DATA: WBC 7.2, hemoglobin 14.0, platelets 183. INR 0.9. Sodium 137, creatinine 1.05, calcium 9.2. LFT normal. DISCHARGE MEDICATIONS: 1. [place] 10 one tablet q.8 hourly p.r.n. 2. Bactrim DS one tablet twice daily. 3. Bystolic 5 mg daily. 4. Clindamycin 150 mg q.i.d. 5. Flexeril 10 mg t.i.d. p.r.n. 6. Vitamin D3 of 2000 units p.o. daily. 7. Benadryl 25 mg q.8 hourly p.r.n. 8. Pepcid 20 mg b.i.d. for 5 days. 9. Prednisone 20 mg b.i.d. for 5 days. 10. Procardia XL 30 mg p.o. daily. The patient will continue his antibiotics, Bactrim DS and clindamycin as per prescription from surgeon. CONTRAINDICATION: None. CODE STATUS: Full code. INPATIENT CHOIR LEADER: None. ALLERGIES: AMOXICILLIN, LISINOPRIL, AND GABAPENTIN. CASE RESULT PENDING ON DISCHARGE: None. DISCHARGE PLAN: Post hospital, the patient will follow up with primary care physician in 1 week and the patient will follow up with the surgeon who did surgery on his back. HOSPITAL COURSE: A 55-year-old male who was brought to emergency room with increasing swelling of the lip and tongue. The patient was having difficulty speaking because of that. The patient was taking lisinopril for a long period of time. The patient was also on antibiotics, Bactrim DS and clindamycin, for one week. There was no other new medication that was recently started. The patient's clinical presentation was consistent with angioedema. We treated him with Solu-Medrol, Benadryl, and Pepcid. In the emergency room, the patient also received a dose of Cyklokapron IV. The patient was also given epinephrine. Subsequently, the patient was observed overnight in the hospital, and he did not have any further angioedema. On discharge, we prescribed 5 days course of Benadryl, Pepcid, and prednisone. We changed his antihypertensive medication to Procardia XL. We educated him to avoid all kind of CONRADO inhibitor medication. The patient was seen and examined at bedside today. PHYSICAL EXAMINATION: VITAL SIGNS: Currently, temperature 97.5, pulse 90, respiratory rate 16, saturation 100%, and blood pressure 152/83. Weight 341 pounds. GENERAL: The patient is currently alert, awake, no acute distress. HEENT: Head, normocephalic and atraumatic. LUNGS: Clear to auscultation without any rhonchi or rales. CARDIAC: S1 and S2 regular. No murmur. No gallop. No rub. ABDOMEN: Soft, bowel sounds present. EXTREMITIES: No edema. NEUROLOGIC: Nonfocal examination. Job ID: [id number]
--- NOTE | 2020-06-08 13:10 | PDOC.HOSPP ---
- Subjective Encounter Date: 06/08/20 Encounter Time: 10:30 Subjective: Patient seen and examined. No new complaints. No overnight events - Objective Vital Signs & Weight: Vital Signs (12 hours) Temp Pulse Resp BP Pulse Ox 06/08/20 12:03 88 18 96 06/08/20 10:45 97.5 F L 90 16 152/83 H 100 06/08/20 07:21 97.6 F 76 16 157/94 H 99 06/08/20 04:12 97.6 F 77 16 142/84 H 95 Weight Weight 341 lb 11.464 oz I&O: 06/07/20 06/08/20 06/09/20 06:59 06:59 06:59 Intake Total 490 Balance 490 Result Diagrams: 06/08/20 05:21 06/08/20 05:21 Hospitalist ROS - Review of Systems ENT: denies: ear pain, ear discharge, nose pain, nose discharge, nose congestion, mouth pain, mouth swelling, throat pain, throat swelling, other Respiratory: denies: cough, dry, shortness of breath, hemoptysis, SOB with exc ertion, pleuritic pain, sputum, wheezing, other Cardiovascular: denies: chest pain, palpitations, orthopnea, paroxysmal noc. dyspnea, edema, light headedness, other Gastrointestinal: denies: nausea, vomiting, abdominal pain, diarrhea, constipation, melena, hematochezia, other Genitourinary: denies: dysuria, frequency, incontinence, hematuria, retention, other Musculoskeletal: denies: neck pain, shoulder pain, arm pain, back pain, hand pain, leg pain, foot pain, other - Medication Medications: Active Medications Generic Name Dose Route Start Last Admin Trade Name Freq PRN Reason Stop Dose Admin Acetaminophen 650 mg 06/07/20 16:33 06/08/20 10:47 Acetaminophen 325 Mg Tab PO 650 mg Q4H PRN Administration Headache/Fever/Mild Pain (1-3) Diphenhydramine HCl 25 mg 06/07/20 16:33 06/08/20 12:00 Diphenhydramine 50 Mg/Ml Vial IVP 25 mg Q4H PRN Administration Itching & Hives (mild) Enoxaparin Sodium 40 mg 06/08/20 09:00 06/08/20 09:10 Enoxaparin Sodium 40 Mg/0.4 Ml Syringe SC Not Given 0900 [facility] Famotidine 20 mg 06/07/20 21:00 06/08/20 09:09 Famotidine 20 Mg Tab PO 20 mg BID JAVY Administration Methylprednisolone Sodium Succinate 40 mg 06/07/20 22:00 06/08/20 13:04 Methylprednisolone Sod Succ 40 Mg Vial IVP Not Given Q8HR JAVY Nifedipine 60 mg 06/08/20 09:00 06/08/20 09:09 Nifedipine Xl 60 Mg Tab PO 60 mg DAILY JAVY Administration - Exam General Appearance: NAD, awake alert Eye: PERRL, anicteric sclera ENT: normocephalic atraumatic, no oropharyngeal lesions Neck: supple, symmetric, no JVD, no thyromegaly Heart: RRR, no murmur, no gallops, no rubs Respiratory: CTAB, no wheezes, no rales, no ronchi Gastrointestinal: soft, non-tender, non-distended, normal bowel sounds Extremities: no cyanosis, no clubbing Skin: normal turgor, no lesions Neurological: no focal deficits Musculoskeletal: normal tone, normal strength, no muscle wasting Psychiatric: normal affect, normal behavior, A&O x 3 Hosp A/P (1) Angioedema due to angiotensin converting enzyme inhibitor (CONRADO-I) Code(s): T78.3XXA - ANGIONEUROTIC EDEMA, INITIAL ENCOUNTER; T46.4X5A - ADVERSE EFFECT OF [id number] INHIBITORS, INIT Status: Resolved (2) Hypertension Code(s): I10 - ESSENTIAL (PRIMARY) HYPERTENSION Status: Chronic Qualifiers: Hypertension type: essential hypertension Qualified Code(s): I10 - Essential (primary) hypertension (3) Obesity, morbid Code(s): E66.01 - MORBID (SEVERE) OBESITY DUE TO EXCESS CALORIES Status: Chronic - Plan old records reviewed/req pt's angioedema improved but he has flushing feeling and he was not feeling overall good I have evaluated him, will monitor and treat his symptoms if he feels better later today will consider discharge
[2020-06-08] MEDS: HYDROcodone/Acetaminophen 5/325 mg Tablet PO PRN ×2 (15:16→22:08)
[2020-06-08] MEDS: Morphine 4 MG/ML VIAL SLOW IVP PRN ×2 (16:10→19:47)
[2020-06-08] MEDS: Ondansetron PF 4 MG/2 ML Vial IVP PRN ×2 (16:18→22:10)
--- NOTE | 2020-06-08 16:41 | CT ---
CT HEAD WITHOUT IV CONTRAST COMPARISON: None. HISTORY: Headache that started this morning. History of high blood pressure. TECHNIQUE: Axial CT imaging at 5 mm intervals from vertex through skull base without contrast FINDINGS: There is no evidence of an acute infarction, hemorrhage, mass effect, or midline shift. The ventricul ar system is normal in size, shape, and position. Skull base has a normal CT appearance. Trace mucosal thickening right sphenoid sinus. Remainder of the paranasal sinuses as well as visualiz ed mastoid air cells are clear. Osseous structures appear intact. IMPRESSION: 1. No acute intracranial abnormality demonstrated.
[2020-06-09] MEDS: Morphine 4 MG/ML VIAL SLOW IVP PRN ×2 (00:33→05:54)
[2020-06-09] MEDS: HYDROcodone/Acetaminophen 5/325 mg Tablet PO PRN ×2 (03:03→08:06)
[2020-06-09] MEDS ORDERED: predniSONE 20 MG TAB PO SCH (08:00)
[2020-06-09] MEDS: Famotidine 20 MG TAB PO SCH (08:05)
[2020-06-09] MEDS: Enoxaparin Sodium 40 MG/0.4 ML SYRINGE SC SCH (08:07)
[2020-06-09] MEDS ORDERED: NIFEdipine XL 30 MG TAB PO SCH (09:00)
--- NOTE | 2020-06-09 10:32 | PDOC.HOSPP ---
- Subjective Encounter Date: 06/09/20 Encounter Time: 08:30 Subjective: Patient seen and examined. No new complaints. No overnight events - Objective Vital Signs & Weight: Vital Signs (12 hours) Temp Pulse Resp BP BP Pulse Ox 06/09/20 08:05 68 151/93 H 06/09/20 07:27 97.9 F 68 20 151/93 H 99 06/09/20 06:01 98 F 63 142/89 H 97 06/09/20 00:41 98.1 F 69 20 153/95 H 98 Weight Weight 341 lb 11.464 oz I&O: 06/08/20 06/09/20 06/10/20 06:59 06:59 06:59 Intake Total 490 820 Balance 490 820 Result Diagrams: 06/08/20 05:21 06/08/20 05:21 Hospitalist ROS - Review of Systems ENT: denies: ear pain, ear discharge, nose pain, nose discharge, nose congestion, mouth pain, mouth swelling, throat pain, throat swelling, other Respiratory: denies: cough, dry, shortness of breath, hemoptysis, SOB with excertion, pleuritic pain, sputum, wheezing, other Cardiovascular: denies: chest pain, palpitations, orthopnea, paroxysmal noc. dyspnea, edema, light headedness, other Gastrointestinal: denies: nausea, vomiting, abdominal pain, diarrhea, constip ation, melena, hematochezia, other Genitourinary: denies: dysuria, frequency, incontinence, hematuria, retention, other Musculoskeletal: denies: neck pain, shoulder pain, arm pain, back pain, hand pain, leg pain, foot pain, other Skin: denies: rash, lesions, vishnu, bruising, other - Medication Medications: Active Medications Generic Name Dose Route Start Last Admin Trade Name Freq PRN Reason Stop Dose Admin Acetaminophen 650 mg 06/07/20 16:33 06/08/20 10:47 Acetaminophen 325 Mg Tab PO 650 mg Q4H PRN Administration Headache/Fever/Mild Pain (1-3) Hydrocodone Bitart/Acetaminophen 1 tab 06/07/20 16:33 06/09/20 08:06 Hydrocodone/Acetaminophen 5/325 Mg Tablet PO 1 tab Q4H PRN Administration Moderate Pain (4-6) Diphenhydramine HCl 25 mg 06/07/20 16:33 06/08/20 12:00 Diphenhydramine 50 Mg/Ml Vial IVP 25 mg Q4H PRN Administration Itching & Hives (mild) Enoxaparin Sodium 40 mg 06/08/20 09:00 06/09/20 08:07 Enoxaparin Sodium 40 Mg/0.4 Ml Syringe SC Not Given 0900 [facility] Famotidine 20 mg 06/07/20 21:00 06/09/20 08:05 Famotidine 20 Mg Tab PO 20 mg BID JAVY Administration Morphine Sulfate 4 mg 06/08/20 15:55 06/09/20 05:54 Morphine 4 Mg/Ml Vial SLOW IVP 4 mg Q4H PRN Administration Pain Nifedipine 30 mg 06/09/20 09:00 06/09/20 08:05 Nifedipine Xl 30 Mg Tab PO 30 mg DAILY JAVY Administration Ondansetron HCl 4 mg 06/07/20 16:33 06/08/20 22:10 Ondansetron Pf 4 Mg/2 Ml Vial IVP 4 mg Q6H PRN Administration Nausea/Vomiting Prednisone 20 mg 06/09/20 08:00 06/09/20 09:40 Prednisone 20 Mg Tab PO Not Given QAM-[facility] - Exam General Appearance: NAD, awake alert Eye: PERRL, anicteric sclera ENT: normocephalic atraumatic, no oropharyngeal lesions Neck: supple, symmetric, no JVD, no thyromegaly Heart: RRR, no murmur, no gallops, no rubs Respiratory: no wheezes, no rales, no ronchi Gastrointestinal: soft, non-tender, non-distended, normal bowel sounds Extremities: no cyanosis, no clubbing, no edema Skin: normal turgor, no lesions Neurological: no focal deficits Musculoskeletal: normal tone, normal strength, no muscle wasting Psychiatric: normal affect, normal behavior, A&O x 3 Hosp A/P (1) Angioedema due to angiotensin converting enzyme inhibitor (CONRADO-I) Code(s): T78.3XXA - ANGIONEUROTIC EDEMA, INITIAL ENCOUNTER; T46.4X5A - ADVERSE EFFECT OF [id number] INHIBITORS, INIT Status: Resolved (2) Hypertension Code(s): I10 - ESSENTIAL (PRIMARY) HYPERTENSION Status: Chronic Qualifiers: Hypertension type: essential hypertension Qualified Code(s): I10 - Essential (primary) hypertension (3) Obesity, morbid Code(s): E66.01 - MORBID (SEVERE) OBESITY DUE TO EXCESS CALORIES Status: Chronic - Plan old records reviewed/req Patient is completely asymptomatic today, angioedema has been improved Discharged home, see my discharge summary
[2020-06-09 11:33] VITALS: BP 155/98; TEMP 97.7
--- NOTE | 2020-06-11 09:02 | DIS ---
DATE OF ADMISSION: 06/07/2020 DATE OF DISCHARGE: 06/09/2020 ADDENDUM: Please see my discharge summary dictated yesterday for more details. There is no significant change in my discharge summary. Medication will be the same. He stayed in the hospital because he was not feeling good, and he had some side effects with the steroid and that is why overnight we observed him, he was complaining of headache and that is why we did CT brain, which came back negative. This morning, he is doing much better, he expressed his wish to go home today. Please see my progress note from today for more details. Job ID: [id number]
== END 2020-06-09 12:06 | disposition home or self-care (01) ==
LOC: ERS 10:47 → T4-B 14:09
PROVIDERS: ADMIT Internal Medicine; ATTEND Internal Medicine
DX: T78.3XXA Angioneurotic edema, initial encounter (principal); T46.4X5A Adverse effect of angiotensin-converting-enzyme inhibitors, initial encounter; E66.01 Morbid (severe) obesity due to excess calories; I10 Essential (primary) hypertension; G89.29 Other chronic pain; M54.5 Low back pain; E55.9 Vitamin D deficiency, unspecified; Z79.899 Other long term (current) drug therapy; Z68.41 Body mass index [BMI] 40.0-44.9, adult; Z88.1 Allergy status to other antibiotic agents; Z88.8 Allergy status to other drugs, medicaments and biological substances
CPT/HCPCS: 36415; 36416; 70450; 80048; 80053; 85025; 85610; 85730; 96372; 96374; 96375; 96376; G0378; J0171; J1200; J2270; J2405; J2920; J2930; S0028

== ENCOUNTER 2020-07-12 15:53 | Emergency (ER) | payer BC ==
[2020-07-12 16:35] LABS: #Basophils 0.1 thou/uL (0.0-0.2); #Eosinphils 0.1 thou/uL (0.0-0.7); #Lymphocytes 1.3 thou/uL (1.20-3.40); #Monocytes 0.6 thou/uL (0.11-0.59); #Neutrophils 7.3 thou/uL (1.40-6.50); %Basophils 0.8 % (0.0-1.0); %Eosinophils 1.3 % (0.0-10.0); %Lymphocytes 14.1 % (21.0-51.0); %Monocytes 6.7 % (0.0-10.0); %Neutrophils 77.1 % (42.0-75.0); Hemoglobin 13.4 g/dL (14.0-18.0); Mean Corpuscular HGB CONC 33.7 g/dL (32.0-36.0); Mean Corpuscular Hemoglobin 31.7 pg (27.0-31.0); Mean Corpuscular Volume 94.1 fL (78.0-98.0); Mean Platelet Volume 7.1 fL (7.4-10.4); Platelet Count 212 thou/uL (130-400); RBC Distribution Width 14.8 % (11.5-14.5); Red Blood Cell (RBC) Count 4.23 mill/uL (4.70-6.10); White Blood Cell (WBC) Count 9.5 thou/uL (4.8-10.8)
[2020-07-12 17:00] LABS: ALT (SGPT) 14 U/L (8-55); AST (SGOT) 20 U/L (5-34); Albumin 4.2 g/dL (3.5-5.0); Alkaline Phosphatase 120 U/L (40-110); Anion Gap 16 mmol/L (10-20); BUN (Urea Nitrogen) 14 mg/dL (8.4-25.7); Bilirubin, Total 0.4 mg/dL (0.2-1.2); Calc. Creatinine Clearance 0 mL/min (70-130); Calcium 9.7 mg/dL (7.8-10.44); Carbon Dioxide 29 mmol/L (22-29); Chloride 101 mmol/L (98-107); Estimated GFR-MDRD 61; Globulin 3.8 g/dL (2.4-3.5); Glucose 108 mg/dL (70-105); Potassium 3.9 mmol/L (3.5-5.1); Sodium 142 mmol/L (136-145)
--- NOTE | 2020-07-12 17:12 | CT ---
CT ABDOMEN AND PELVIS WITH IV CONTRAST: Date: 07/12/2020 PROVIDED CLINICAL HISTORY: Abdominal pain. FINDINGS: Comparison made with CT examination of the abdomen performed 12/21/2019. The visualized lung bases appear free of significant opacity. An enlarged epicardial lymph node is se en, increased in size from prior, now measuring about 3.1 cm in greatest transverse dimension. Numerous ill-defined hepatic masses are again seen, which appear enlarged with respect to the prior s tudy. The largest of these measures approximately 3.3 cm in greatest transverse dimension on the curr ent study as compared to about 2.0 cm on prior. Retroperitoneal lymph node enlargement is redemonstrated, with aortocaval adenopathy, worsened since prior. The largest lymph node measures about 5.7 cm in greatest transverse dimension as compared to a bout 4.9 cm on prior . Changes of prior sleeve gastrectomy are again seen. The spleen, pancreas, kidneys, and adrenal glands appear unremarkable. There is no bowel dilatation, free fluid, or free air apparent. There is somewhat diffuse stranding o f the regional fat both intra-abdominal and subcutaneous. This appears to asymmetrically affect the f at about the urinary bladder which demonstrates mild apparent wall thickening. The appendix appears normal. The regional major vascular structures appear unremarkable. There is no evidence for abdominal wall hernia. The osseous structures demonstrates no concerning lytic or blastic lesions. IMPRESSION: 1. Worsening hepatic metastatic disease and thoracoabdominal lymphadenopathy. 2. Apparent inflammatory fat stranding changes about the urinary bladder which demonstrates mild wal l thickening. Correlate for cystitis. POS: CARLOS
[2020-07-12 17:23] LABS: Bilirubin Negative (Negative); Blood, Urine Negative (Negative); Clarity Clear (Clear); Glucose, Urine (Dipstick) Normal (Negative); Ketone, Urine Negative (Negative); Leukocyte Negative Leu/uL (Negative); Nitrite Negative (Negative); Protein, Urine (Dipstick) 20 mg/dL (Neg-Trace); Specific Gravity, Urine 1.043 (1.002-1.036); Urobilinogen Normal mg/dL (Less than 2)
== END 2020-07-12 17:55 | disposition home or self-care (01) ==
LOC: ERS 15:53
DX: R10.30 Lower abdominal pain, unspecified (principal); I10 Essential (primary) hypertension; Z79.899 Other long term (current) drug therapy
CPT/HCPCS: 36415; 74177; 80053; 81003; 85025; 87086

== ENCOUNTER 2021-02-02 11:15 | Observation (INO) | payer BC ==
[2021-02-02] MEDS ORDERED: Metoclopramide HCl 10 MG/2 ML VIAL ONE (12:25)
[2021-02-02] MEDS ORDERED: diphenhydrAMINE 50 MG/ML VIAL ONE (12:25)
[2021-02-02 12:40] LABS: #Eosinphils 0.1 thou/uL (0.0-0.7); #Lymphocytes 0.7 thou/uL (1.20-3.40); #Monocytes 0.8 thou/uL (0.11-0.59); #Neutrophils 10.2 thou/uL (1.40-6.50); %Basophils 0.3 % (0.0-1.0); %Eosinophils 0.5 % (0.0-10.0); %Lymphocytes 5.7 % (21.0-51.0); %Monocytes 6.7 % (0.0-10.0); %Neutrophils 86.8 % (42.0-75.0); Hemoglobin 13.8 g/dL (14.0-18.0); Mean Corpuscular HGB CONC 33.9 g/dL (32.0-36.0); Mean Corpuscular Hemoglobin 31.3 pg (27.0-31.0); Mean Corpuscular Volume 92.5 fL (78.0-98.0); Mean Platelet Volume 7.7 fL (7.4-10.4); Platelet Count 166 thou/uL (130-400); RBC Distribution Width 13.6 % (11.5-14.5); Red Blood Cell (RBC) Count 4.41 mill/uL (4.70-6.10); White Blood Cell (WBC) Count 11.8 thou/uL (4.8-10.8)
[2021-02-02 12:56] LABS: Lactic Acid 1.4 mmol/L (0.5-2.2)
[2021-02-02 13:01] LABS: ALT (SGPT) 18 U/L (8-55); AST (SGOT) 23 U/L (5-34); Albumin 4.1 g/dL (3.5-5.0); Alkaline Phosphatase 118 U/L (40-110); Anion Gap 15 mmol/L (10-20); BUN (Urea Nitrogen) 17 mg/dL (8.4-25.7); Bilirubin, Total 0.4 mg/dL (0.2-1.2); Calc. Creatinine Clearance 0 mL/min (70-130); Calcium 9.4 mg/dL (7.8-10.44); Carbon Dioxide 25 mmol/L (22-29); Chloride 105 mmol/L (98-107); Glucose 104 mg/dL (70-105); Potassium 5.3 mmol/L (3.5-5.1); Protein, Total 7.1 g/dL (6.0-8.3); Sodium 140 mmol/L (136-145)
[2021-02-02] MEDS ORDERED: HYDROcodone/Acetaminophen 10/325 mg Tablet ONE (16:07)
[2021-02-02 17:12] LABS: Troponin I Less than 0.010 ng/mL (< 0.028)
[2021-02-02] MEDS ORDERED: Acetaminophen 325 MG TAB PO PRN (19:00)
[2021-02-02] MEDS ORDERED: Ondansetron ODT 4 MG TAB SL PRN (19:00)
[2021-02-02] MEDS ORDERED: Ondansetron PF 4 MG/2 ML Vial IVP PRN (19:00)
[2021-02-02] MEDS ORDERED: Meclizine HCl 25 MG TAB PO PRN (19:02)
[2021-02-02 19:16] VITALS: BMI 44.0
[2021-02-02] MEDS: Famotidine 20 MG TAB PO SCH (20:13)
[2021-02-02] MEDS: Sodium Chloride 0.9% 1,000 ML IV SCH (20:13)
[2021-02-02] MEDS: Apixaban 5 MG TAB PO SCH (20:13)
[2021-02-02] MEDS: diphenhydrAMINE 25 MG CAP PO SCH (20:13)
[2021-02-02 21:13] LABS: Troponin I Less than 0.010 ng/mL (< 0.028)
[2021-02-02 23:42] LABS: Bacteria/HPF None Seen HPF (None Seen); Bilirubin Negative (Negative); Blood, Urine Negative (Negative); Clarity Clear (Clear); Glucose, Urine (Dipstick) Normal (Negative); Ketone, Urine Negative (Negative); Leukocyte Negative Leu/uL (Negative); Nitrite Negative (Negative); Protein, Urine (Dipstick) Negative (Neg-Trace); RBC/HPF 0-3 HPF (0-3); Specific Gravity, Urine 1.031 (1.002-1.036); Squamous Epithelial None Seen HPF (0-3); Urobilinogen Normal mg/dL (Less than 2); WBC/HPF 0-3 HPF (0-3); pH, Urine 5.5 (5.0-9.0)
[2021-02-02 23:48] LABS: Troponin I Less than 0.010 ng/mL (< 0.028)
[2021-02-02 23:52] LABS: Urine Culture Reflex No No
[2021-02-03] MEDS: Sodium Chloride 0.9% 1,000 ML IV SCH ×2 (03:01→08:40)
[2021-02-03] MEDS: diphenhydrAMINE 25 MG CAP PO SCH ×2 (03:03→12:29)
[2021-02-03 07:05] LABS: Anion Gap 13 mmol/L (10-20); BUN (Urea Nitrogen) 13 mg/dL (8.4-25.7); Calc. Creatinine Clearance 159 mL/min (70-130); Calcium 8.5 mg/dL (7.8-10.44); Carbon Dioxide 23 mmol/L (22-29); Chloride 108 mmol/L (98-107); Glucose 113 mg/dL (70-105); Potassium 4.4 mmol/L (3.5-5.1); Sodium 140 mmol/L (136-145)
[2021-02-03 07:47] LABS: #Eosinphils 0.1 thou/uL (0.0-0.7); #Lymphocytes 0.9 thou/uL (1.20-3.40); #Monocytes 0.6 thou/uL (0.11-0.59); #Neutrophils 4.3 thou/uL (1.40-6.50); %Basophils 0.8 % (0.0-1.0); %Eosinophils 2.1 % (0.0-10.0); %Lymphocytes 14.6 % (21.0-51.0); %Monocytes 10.7 % (0.0-10.0); %Neutrophils 71.8 % (42.0-75.0); Hemoglobin 12.4 g/dL (14.0-18.0); Mean Corpuscular HGB CONC 33.8 g/dL (32.0-36.0); Mean Corpuscular Hemoglobin 31.1 pg (27.0-31.0); Mean Corpuscular Volume 92.1 fL (78.0-98.0); Mean Platelet Volume 7.9 fL (7.4-10.4); Platelet Count 114 thou/uL (130-400); Platelet Morphology Comment Appears Decreased; RBC Distribution Width 13.7 % (11.5-14.5); Red Blood Cell (RBC) Count 3.97 mill/uL (4.70-6.10); White Blood Cell (WBC) Count 5.9 thou/uL (4.8-10.8)
[2021-02-03 07:56] LABS: MDiff Complete? YES
[2021-02-03] MEDS: Famotidine 20 MG TAB PO SCH (08:36)
[2021-02-03] MEDS: Apixaban 5 MG TAB PO SCH (08:36)
[2021-02-03] MEDS ORDERED: Lorazepam 1 MG TAB PO SCH (08:53)
[2021-02-03] MEDS ORDERED: NIFEdipine XL 30 MG TAB PO SCH (09:00)
[2021-02-03] MEDS ORDERED: Cholecalciferol 1,000 UNITS (25 MCG) TAB PO SCH (09:00)
[2021-02-03 11:10] VITALS: BP 137/80; TEMP 97.9
[2021-02-03 15:56] LABS: SARS-CoV-2 PCR by NAA Not Detected (NotDetected)
== END 2021-02-03 15:09 | disposition home or self-care (01) ==
LOC: ERS 11:15 → T4-A 16:53
PROVIDERS: ADMIT Internal Medicine; ATTEND Internal Medicine
DX: R42 Dizziness and giddiness (principal); H53.8 Other visual disturbances; R00.1 Bradycardia, unspecified; D72.829 Elevated white blood cell count, unspecified; C7A.8 Other malignant neuroendocrine tumors; I10 Essential (primary) hypertension; E87.5 Hyperkalemia; Z79.01 Long term (current) use of anticoagulants; Z79.899 Other long term (current) drug therapy; Z88.0 Allergy status to penicillin; Z88.8 Allergy status to other drugs, medicaments and biological substances; Z20.822 Contact with and (suspected) exposure to COVID-19
CPT/HCPCS: 36415; 70450; 71045; 80048; 80053; 81001; 83605; 84484; 85025; 87040; 93005; 93010; 93880; 96365; 96375; G0378; J1200; J2765; Q0163; U0003; U0005